=== PATIENT | male | born 1980 ===

== ENCOUNTER 2021-05-20 05:41 | Emergency (ER) | payer SELFPAY ==
[2021-05-20 06:09] VITALS: BP 138/93; PULSE 73; RESP 15; TEMP 36.4; O2SAT 96; BMI 28.8
[2021-05-20] MEDS: SILVER NITRATE STICK 1 EACH TOP (06:55)
[2021-05-20] MEDS: OXYMETAZOLINE NASAL SPRAY 15 ML 2 SPRAYS NASAL (07:21)
--- NOTE | 2021-05-20 07:29 | ED.EPISTAXIS ---
HPI - Epistaxis General Chief complaint: Nasal Problem Stated complaint: nose bleed x2 days Time Seen by Provider: 05/20/21 06:42 Source: patient Mode of arrival: Ambulatory History of Present Illness HPI Narrative: 40M nonsmoker without any significant medical history presents with a left sided nose bleed that has been present off and on for much of the morning. Patient denies any injury, picking, or history of the same. Takes no blood thinners and denies other symptoms such as dizziness, weakness or lightheadedness. He has not recently been ill and denies any runny nose, sneezing or cough. Related Data Allergies Allergy/AdvReac Type Severity Reaction Status Date / Time No Known Drug Allergies Allergy Verified 05/20/21 06:09 Review of Systems Review of Systems Narrative: GENERAL: Denies chills, fatigue, malaise, fever, sweats. HEENT: See HPI RESPIRATORY: Denies dyspnea, cough, wheezing, hemoptysis, sputum. CARDIOVASCULAR: Denies chest pain, palpitations, orthopnea, edema, GASTROINTESTINAL: Denies nausea, vomiting, abdominal pain, diarrhea, constipation, melena. : Denies dysuria, frequency, incontinence, hematuria, urinary retention. MUSCULOSKELETAL: denies weakness, joint pain, or bony pain SKIN: Denies rash, skin lesions, or other NEUROLOGIC: Denies weakness, headache, numbness, change in speech, confusion, seizures, incoordination. PSYCHIATRIC: No concerning psychosocial issues. 12 point review of systems is negative except for those stated above Patient History Social History Smoking Status: Never smoker Smoking Status: Never smoker alcohol intake frequency: a few times a week Substance Use Type: does not use Exam Narrative Exam Narrative: GEN: AOx3 and in mild distress EYES: Pupils are equal, round, and reactive to light and accommodation. Extraoccular muscles are intact bilaterally. There is no subconjunctival hemorrhage or exudate. ENT: no active bleeding, but minimal fresh clots noted in L nare. NO pharyngeal drainage. CHEST: Lungs are clear to auscultation bilaterally and free of wheezes, rales, or rhonchi. Heart rate is regular rhythm, there are no murmurs, clicks, rubs, or gallops. There is no chest wall tenderness. ABD: Abdomen is soft and nontender. There is no guarding or rebound. Bowel sounds are normal in all 4 quadrants. There is no mass or organomegaly. EXT: Full painless ROM of all extremities with no loss of sensation or strength. SKIN: Warm, pink, and dry. No erythema or rash Initial Vital Signs Initial Vital Signs: Vital Signs Temperature 97.6 F 05/20/21 06:09 Pulse Rate 73 05/20/21 06:09 Respiratory Rate 15 05/20/21 06:09 Blood Pressure 138/93 H 05/20/21 06:09 Pulse Oximetry 96 05/20/21 06:09 Procedures Epistaxis Control Time Out Performed: Yes Nostril: left Nose Prepped With: oxymetazoline Direct Inspection: yes and anterior source identified Clots Removed by: blowing nose and suction Cautery Used: silver nitrate Course Course Course Narrative: two courses of cotton balls with afrin and pressure x15 minutes after cautery as well as ambulation trial and no repeat bleeding. Extensive return precautions discussed and questions answered to his apparent satisfaction. Patient given contact information for [facility] and encouraged to follow up there if able. Orders Ordered: Discontinued Medications Oxymetazoline HCl (Oxymetazoline Nasal [place] 15 Ml) 2 sprays NASAL NOW ONE Stop: 05/20/21 07:16 Last Admin: 05/20/21 07:21 Dose: 2 sprays Documented by: JEAN PIERRE Silver Nitrate/Potassium Nitrate (Silver Nitrate Stick) 1 each TOP NOW ONE Stop: 05/20/21 06:43 Last Admin: 05/20/21 06:55 Dose: 1 each Documented by: JEAN PIERRE Vital Signs Vital signs: Vital Signs - 8 hr 05/20/21 06:09 Temperature 97.6 F Pulse Rate 73 Respiratory Rate 15 Blood Pressure 138/93 H Pulse Oximetry 96 Discharge Plan Departure Patient Disposition: Home Clinical Impression: Epistaxis Instructions: DI for Nosebleed Activity Restrictions/Additional Instructions: *You have been diagnosed with [ acute anterior epistaxis ] *What to do: * do not blow your nose, stick your finger in her nose, or disturb nose for the next 24 hr. If you must sneeze please sneeze out your mouth like we talked about *Follow up with your primary care provider or ENT doctor in 2-3 days, call for an appointment. Let them know you were seen in the Emergency Department and that we ask that you be seen in follow up *Return to ER if you should have any new, worsening or concerning symptoms * if you are bleeding starts again at home please place a portion of a cotton ball in your nostril and squirt some of the Afrin you were given in your nose. Apply the nose clamp and uses a watch or o'clock to time yourself for 15 min. At the end 15 min recheck for bleeding, if you continue to bleed please repeat the process for another 15 min. If at the end of 30 min you still have bleeding you should return to the emergency department Referrals: Jus Jain MD [Physician] -
[2021-05-20 08:11] VITALS: BP 134/78; PULSE 83; RESP 18; O2SAT 96
== END 2021-05-20 08:12 | disposition home or self-care (01) ==
PROVIDERS: Emergency Provider Emergency Medicine
DX: R04.0 Epistaxis (principal)
CPT/HCPCS: 30901; 99281; 99282; A9270